=== PATIENT | male | born 1965 | race Hispanic/Latino ===

== ENCOUNTER → 2018-05-25 | Outpatient (CLI) | payer OTHER | END | disposition home or self-care (01) | LOC: RAH 10:00 | PROVIDERS: ATTEND Internal Medicine | DX: N28.81 Hypertrophy of kidney (principal); K46.9 Unspecified abdominal hernia without obstruction or gangrene; Q60.0 Renal agenesis, unilateral | CPT/HCPCS: 74176 ==